=== PATIENT | female | born 1930 | race Asian ===

== ENCOUNTER 2018-04-30 09:01 | Inpatient (IN) | payer OTHER, MEDICAID ==
[~2018-04-30] VITALS: Ht 157.5 cm; Wt 44.0 kg
[2018-04-30 09:01] VITALS: BP_SYST 103
[2018-04-30] MEDS ORDERED: NACL 0.9% 1,000 ML IV ONE ×2 (09:15→10:15)
[2018-04-30 09:48] LABS: HEMATOCRIT 42.6 % (36-48); HEMOGLOBIN 14.5 g/dL (12.0-16.0); MEAN CORPUSCULAR HEMOGLOBIN 33 pg (27-31); MEAN CORPUSCULAR HGB CONC 34 % (32-36); MEAN CORPUSCULAR VOLUME 97 fL (79.0-98.0); PLATELET COUNT (AUTO) 263 K/uL (130-430); RED BLOOD CELL COUNT(AUTO) 4.41 MIL/uL (4.2-6.2); RED CELL DISTRIBUTION WIDTH 13.2 % (9.0-15.0); WHITE BLOOD COUNT (AUTO) 12.7 K/uL (4.8-10.8)
[2018-04-30 09:59] LABS: ANION GAP 11 (5-15); CALCIUM 9.6 mg/dL (8.4-11.0); CHLORIDE 110 mmol/L (98-107); GLUCOSE 138 mg/dL (70-99); POTASSIUM 3.2 mmol/L (3.5-5.1); SODIUM SERUM 148 mmol/L (136-145); UREA NITROGEN, BLOOD 34 mg/dL (8-21)
[2018-04-30 10:00] LABS: CREATININE 1.14 mg/dL (0.55-1.30)
[2018-04-30 10:03] LABS: ATYPICAL LYMPHOCYTES % 0 % (0-0); BAND % (MANUAL) 20 % (0-6); BASOPHILS % (MANUAL) 0 % (0-2); EOSINOPHILS % (MANUAL) 0 % (0-7); LYMPHOCYTES % (MANUAL) 3 % (20-46); MONOCYTES % (MANUAL) 5 % (0-11)
[2018-04-30 10:08] LABS: ALANINE AMINOTRANSFERASE 29 U/L (12-78); ALBUMIN 4.1 g/dL (3.4-4.8); ASPARTATE AMINOTRANSFERASE 34 U/L (10-37); TOTAL BILIRUBIN 0.4 mg/dL (0.0-1.0)
[2018-04-30] MEDS ORDERED: PIPERACILLIN/TAZO 3.375 GM in NS 50 ML IV ONE (10:15)
[2018-04-30] MEDS ORDERED: VANCOMYCIN HCL 1,000 MG in NS 250 ML IV ONE (10:15)
[2018-04-30 10:40] LABS: BILIRUBIN,URINE NEGATIVE (NEGATIVE); BLOOD, URINE NEGATIVE (NEGATIVE); COLOR,URINE YELLOW (YELLOW); GLUCOSE,URINE NEGATIVE (NEGATIVE); KETONES,URINE NEGATIVE (NEGATIVE); LEUKOCYTE ESTERASE ,URINE NEGATIVE (NEGATIVE); NITRITE, URINE NEGATIVE (NEGATIVE); PH,URINE 5.5 (5.0-8.0); PROTEIN URINE TRACE (NEGATIVE); UROBILINOGEN,URINE 0.2 (0.2-1.0)
[2018-04-30 10:41] LABS: CLARITY/URINE SLIGHTLY HAZY (CLEAR)
[2018-04-30] MEDS ORDERED: VANCOMYCIN HCL 1000 MG/VIAL IV ONE (11:34)
[2018-04-30] MEDS ORDERED: PIPERACILLIN/TAZOBACTAM 3.375 GM/VIAL (ZOSYN) IV ONE (11:34)
[2018-04-30] MEDS ORDERED: GUAI-818 PO ×2 (12:17)
[2018-04-30] MEDS ORDERED: QUET25TA34 PO (12:17)
[2018-04-30] MEDS ORDERED: CAPS60CR4 TP (12:17)
[2018-04-30] MEDS ORDERED: LIP20 PO (12:17)
[2018-04-30] MEDS ORDERED: SERT-131 PO (12:17)
[2018-04-30] MEDS ORDERED: BETA45CR3 TP (12:17)
[2018-04-30] MEDS ORDERED: ALPR1TAB2 PO (12:17)
[2018-04-30] MEDS ORDERED: QUET50TA22 PO (12:17)
[2018-04-30] MEDS ORDERED: HYDR-3610 PO (12:17)
[2018-04-30] MEDS ORDERED: TRAM1TAB33 PO (12:17)
[2018-04-30 14:04] VITALS: BP_SYST 117
[2018-04-30 16:00] VITALS: BP_SYST 112
[2018-04-30] MEDS ORDERED: ACETAMINOPHEN 325 MG TABLET PO PRN (16:00)
[2018-04-30] MEDS: KCL 20 mEq in 0.45% NS 1000 mL 1,000 ML IV SCH (16:40)
[2018-04-30] MEDS ORDERED: KCL 20 mEq in NS 1000 mL 1,000 ML IV SCH (17:00)
[2018-04-30] MEDS ORDERED: POTASSIUM CHLORIDE 40 MEQ, LIDOCAINE JECT 2% PF 100 MG 50 MG in NS 250 ML IV ONE (17:00)
[2018-04-30] MEDS: PIPERACILLIN/TAZO 2.25G/DEX-IS 50 ML IV SCH ×2 (18:38→23:26)
[2018-04-30 20:00] VITALS: BP_SYST 117
[2018-05-01 00:24] VITALS: BP_SYST 105
[2018-05-01] MEDS: KCL 20 mEq in 0.45% NS 1000 mL 1,000 ML IV SCH ×3 (02:50→12:45)
[2018-05-01] MEDS: PIPERACILLIN/TAZO 2.25G/DEX-IS 50 ML IV SCH (05:12)
[2018-05-01 07:23] LABS: BASOPHILS % (AUTO) 0.1 % (0.0-2.0); EOSINOPHILS # (AUTO) 0.1 K/uL (0.0-0.4); EOSINOPHILS % (AUTO) 0.8 % (0.0-4.0); HEMATOCRIT 34.5 % (36-48); LYMPHOCYTES % (AUTO) 7.9 % (20.5-51.5); MEAN CORPUSCULAR HEMOGLOBIN 34 pg (27-31); MEAN CORPUSCULAR HGB CONC 35 % (32-36); MEAN CORPUSCULAR VOLUME 97 fL (79.0-98.0); MONOCYTES # (AUTO) 0.6 K/uL (0.0-1.0); MONOCYTES % (AUTO) 4.7 % (1.7-9.3); NEUTROPHILS % (AUTO) 86.5 % (40.0-70.0); PLATELET COUNT (AUTO) 197 K/uL (130-430); RED BLOOD CELL COUNT(AUTO) 3.56 MIL/uL (4.2-6.2); RED CELL DISTRIBUTION WIDTH 13.1 % (9.0-15.0); WHITE BLOOD COUNT (AUTO) 12.7 K/uL (4.8-10.8)
[2018-05-01 08:00] VITALS: BP_SYST 110
[2018-05-01 08:24] LABS: ALANINE AMINOTRANSFERASE 21 U/L (12-78); ANION GAP 7 (5-15); ASPARTATE AMINOTRANSFERASE 24 U/L (10-37); CALCIUM 7.8 mg/dL (8.4-11.0); CHLORIDE 112 mmol/L (98-107); GLUCOSE 93 mg/dL (70-99); POTASSIUM 3.9 mmol/L (3.5-5.1); SODIUM SERUM 144 mmol/L (136-145); THYROID STIMULATING HORMONE 0.65 uIu/mL (0.34-4.82); TOTAL BILIRUBIN 0.5 mg/dL (0.0-1.0); UREA NITROGEN, BLOOD 18 mg/dL (8-21)
[2018-05-01] MEDS: FAMOTIDINE 20 MG TABLET PO SCH (08:49)
[2018-05-01] MEDS: SERTRALINE HCL 50 MG TABLET PO SCH (08:49)
[2018-05-01] MEDS ORDERED: VANCOMYCIN HCL 1 GM/NS PREMIX 250 ML IV SCH (10:00)
[2018-05-01 12:00] VITALS: BP_SYST 123
[2018-05-01] MEDS ORDERED: cefTRIAXone 1 GM in D5W 50 ML IV ONE (12:00)
[2018-05-01 16:15] VITALS: BP_SYST 125
[2018-05-01] MEDS: LORazepam 1 MG TABLET PO PRN (16:34)
[2018-05-01] MEDS: QUEtiapine FUMARATE 25 MG TABLET PO PRN (16:58)
[2018-05-01 19:30] VITALS: BP_SYST 137
[2018-05-01] MEDS ORDERED: VANCOMYCIN HCL 750 MG/NS 250 ML IV SCH (21:00)
[2018-05-01] MEDS: metroNIDAZOLE 500 mg/NS 100 ML IV SCH (21:27)
[2018-05-01] MEDS ORDERED: HALOPERIDOL 1 MG TABLET (HALDOL) PO ONE (21:30)
[2018-05-02 00:16] VITALS: BP_SYST 118
[2018-05-02] MEDS: KCL 20 mEq in 0.45% NS 1000 mL 1,000 ML IV SCH ×3 (00:34→21:20)
[2018-05-02 06:45] LABS: BASOPHILS % (AUTO) 0.3 % (0.0-2.0); EOSINOPHILS # (AUTO) 0.4 K/uL (0.0-0.4); EOSINOPHILS % (AUTO) 3.8 % (0.0-4.0); HEMOGLOBIN 12.6 g/dL (12.0-16.0); LYMPHOCYTES # (AUTO) 1.4 K/uL (1.0-5.5); LYMPHOCYTES % (AUTO) 13.2 % (20.5-51.5); MEAN CORPUSCULAR HEMOGLOBIN 34 pg (27-31); MEAN CORPUSCULAR HGB CONC 35 % (32-36); MEAN CORPUSCULAR VOLUME 97 fL (79.0-98.0); MONOCYTES # (AUTO) 0.6 K/uL (0.0-1.0); MONOCYTES % (AUTO) 5.4 % (1.7-9.3); NEUTROPHILS # (AUTO) 8.5 K/uL (1.8-7.7); NEUTROPHILS % (AUTO) 77.3 % (40.0-70.0); PLATELET COUNT (AUTO) 206 K/uL (130-430); RED BLOOD CELL COUNT(AUTO) 3.73 MIL/uL (4.2-6.2); RED CELL DISTRIBUTION WIDTH 13.1 % (9.0-15.0); WHITE BLOOD COUNT (AUTO) 10.9 K/uL (4.8-10.8)
[2018-05-02 06:48] LABS: ANION GAP 5 (5-15); CALCIUM 8.5 mg/dL (8.4-11.0); CHLORIDE 109 mmol/L (98-107); CREATININE 0.71 mg/dL (0.55-1.30); GLUCOSE 98 mg/dL (70-99); POTASSIUM 3.8 mmol/L (3.5-5.1); SODIUM SERUM 140 mmol/L (136-145); UREA NITROGEN, BLOOD 13 mg/dL (8-21)
[2018-05-02 08:00] VITALS: BP_SYST 134
[2018-05-02] MEDS: FAMOTIDINE 20 MG TABLET PO SCH (09:24)
[2018-05-02] MEDS: SERTRALINE HCL 50 MG TABLET PO SCH (09:24)
[2018-05-02] MEDS: cefTRIAXone 1 GM in D5W 50 ML IV SCH (09:39)
[2018-05-02] MEDS: metroNIDAZOLE 500 mg/NS 100 ML IV SCH ×2 (09:40→21:20)
[2018-05-02 11:07] LABS: FOLATE (FOLIC ACID) 13.4 ng/mL (>3.0)
[2018-05-02 11:27] VITALS: BP_SYST 118
[2018-05-02] MEDS: QUEtiapine FUMARATE 25 MG TABLET PO PRN (11:58)
[2018-05-02] MEDS: LORazepam 1 MG TABLET PO PRN ×2 (11:58→22:10)
[2018-05-02 16:44] VITALS: BP_SYST 110
[2018-05-02] MEDS: HYDROcodone/ACETAMIN 5-325 MG TAB (NORCO/ VICODIN) PO PRN (17:35)
[2018-05-02 19:20] VITALS: BP_SYST 144
[2018-05-02] MEDS: HALOPERIDOL 1 MG TABLET (HALDOL) PO PRN (19:20)
[2018-05-03 00:05] VITALS: BP_SYST 121
[2018-05-03 07:39] VITALS: BP_SYST 117
[2018-05-03] MEDS: SERTRALINE HCL 50 MG TABLET PO SCH (09:12)
[2018-05-03] MEDS: FAMOTIDINE 20 MG TABLET PO SCH (09:12)
[2018-05-03] MEDS: metroNIDAZOLE 500 mg/NS 100 ML IV SCH ×2 (09:12→22:07)
[2018-05-03] MEDS: cefTRIAXone 1 GM in D5W 50 ML IV SCH (09:13)
[2018-05-03] MEDS: QUEtiapine FUMARATE 25 MG TABLET PO PRN ×3 (09:13→23:48)
[2018-05-03 11:06] VITALS: BP_SYST 139
[2018-05-03] MEDS: KCL 20 mEq in 0.45% NS 1000 mL 1,000 ML IV SCH (15:30)
[2018-05-03 16:40] VITALS: BP_SYST 109
[2018-05-03] MEDS: HALOPERIDOL 1 MG TABLET (HALDOL) PO PRN ×2 (16:44→18:27)
[2018-05-03] MEDS: LORazepam 1 MG TABLET PO PRN (18:27)
[2018-05-03 19:10] VITALS: BP_SYST 122
[2018-05-03] MEDS: HYDROcodone/ACETAMIN 5-325 MG TAB (NORCO/ VICODIN) PO PRN (22:14)
[2018-05-04 00:05] VITALS: BP_SYST 136
[2018-05-04] MEDS: HALOPERIDOL 1 MG TABLET (HALDOL) PO PRN (01:44)
[2018-05-04 08:02] VITALS: BP_SYST 135
[2018-05-04] MEDS: cefTRIAXone 1 GM in D5W 50 ML IV SCH (08:28)
[2018-05-04] MEDS: metroNIDAZOLE 500 mg/NS 100 ML IV SCH (09:03)
[2018-05-04] MEDS: KCL 20 mEq in 0.45% NS 1000 mL 1,000 ML IV SCH (09:03)
[2018-05-04] MEDS: QUEtiapine FUMARATE 25 MG TABLET PO PRN (09:04)
[2018-05-04] MEDS: FAMOTIDINE 20 MG TABLET PO SCH (09:04)
[2018-05-04] MEDS: SERTRALINE HCL 50 MG TABLET PO SCH (09:04)
[2018-05-04 11:33] VITALS: BP_SYST 135
[2018-05-04 12:26] VITALS: BP_SYST 98
== END 2018-05-04 12:05 | disposition home or self-care (01) | DRG 871 ==
LOC: SED 09:01 → STU 13:23 → SMU 05-01 12:24
PROVIDERS: ADMIT Internal Medicine; ATTEND Internal Medicine
DX: A41.9 Sepsis, unspecified organism (principal); G93.41 Metabolic encephalopathy; J69.0 Pneumonitis due to inhalation of food and vomit; E87.0 Hyperosmolality and hypernatremia; E44.1 Mild protein-calorie malnutrition; Z68.1 Body mass index [BMI] 19.9 or less, adult; M54.9 Dorsalgia, unspecified; E87.6 Hypokalemia; E86.0 Dehydration; F29 Unspecified psychosis not due to a substance or known physiological condition; E78.5 Hyperlipidemia, unspecified; R73.9 Hyperglycemia, unspecified; F03.90 Unspecified dementia, unspecified severity, without behavioral disturbance, psychotic disturbance, mood disturbance, and anxiety; G89.29 Other chronic pain; I10 Essential (primary) hypertension; F32.9 Major depressive disorder, single episode, unspecified; Z91.81 History of falling; Z88.1 Allergy status to other antibiotic agents; Z79.899 Other long term (current) drug therapy
CPT/HCPCS: 36415; 70450-TC; 71045; 80048; 80053; 81003; 82140-TC; 82607; 82746; 83605; 83735-TC; 84443-TC; 84484; 85007; 85025; 85027; 87040-TC; 87081; 87086; 92610-GN; 93005; 96365; 96367; 97110-GP; 97116-GP; 97530-GP; 99291; J0696; J2543; J3370; J3480; J3490; J7030; J7050; J7060